=== PATIENT | male | born 1960 | race Hispanic/Latino ===

== ENCOUNTER 2019-02-20 02:26 | Emergency (ER) | payer MEDICAID ==
[2019-02-20] MEDS ORDERED: HYDROmorphone 0.5 MG/0.5 ML Syringe IVPUSH ONE (02:43)
[2019-02-20] MEDS ORDERED: Ondansetron 4 MG/2 ML SDV IVPUSH ONE (02:43)
[2019-02-20] MEDS ORDERED: Sodium Chloride 0.9% 1,000 ML IV SCH (02:45)
--- NOTE | 2019-02-20 02:47 | EDM.PDOC ---
ED HPI GENERAL MEDICAL PROBLEM - General Chief Complaint: Chest Pain Stated Complaint: ABDOMINAL AND CHEST PAINS Time Seen by Provider: 02/20/19 02:33 Source of Information: Reports: Patient History Limitations: Reports: No Limitations - History of Present Illness INITIAL COMMENTS - FREE TEXT/NARRATIVE: This is a 58-year-old male. Around 5 PM this [facility] and [facility]. Around 8 or 9 PM he started having abdominal pain seemed to go all across his mid abdomen. After that it began to migrate up higher into his chest mostly on the right side and into his shoulder. He had some nausea but he didn't vomit. He's had no diarrhea. The pain has persisted and has not gone away so he comes to the ER for evaluation. He has no history of gallbladder problems he has no history of cardiac problems. He's had no recent illnesses colds coughs fever or chills. Chest Pain Score (Numeric/FACES): 8 - Related Data Allergies Allergy/AdvReac Type Severity Reaction Status Date / Time No Known Allergies Allergy Verified 02/20/19 02:37 Home Meds: Home Meds Atenolol 25 mg PO DAILY 02/20/19 [History] Lisinopril 15 mg PO DAILY 02/20/19 [History] ED ROS GENERAL - Review of Systems Review Of Systems: See Below Constitutional: Reports: No Symptoms HEENT: Reports: No Symptoms Respiratory: Denies: Shortness of Breath, Cough Cardiovascular: Reports: Chest Pain Endocrine: Reports: No Symptoms GI/Abdominal: Reports: Abdominal Pain, Nausea. Denies: Constipation, Diarrhea, Vomiting : Reports: No Symptoms Musculoskeletal: Reports: No Symptoms Skin: Reports: No Symptoms Neurological: Reports: No Symptoms Psychiatric: Reports: No Symptoms Hematologic/Lymphatic: Reports: No Symptoms ED EXAM, GENERAL - Physical Exam Exam: See Below Exam Limited By: No Limitations General Appearance: Alert, WD/WN, No Apparent Distress Eye Exam: Bilateral Eye: Normal Inspection Ears: Normal External Exam Nose: Normal Inspection Throat/Mouth: Normal Inspection, Normal Lips, Normal Voice, No Airway Compromise Head: Normocephalic Neck: Supple Respiratory/Chest: No Respiratory Distress, Lungs Clear, Normal Breath Sounds Cardiovascular: Regular Rate, Rhythm, No Murmur GI/Abdominal: Soft, Other (He is much more tender in the right upper quadrant but there is a negative Dumont sign, there is no epigastric or left upper quadrant tenderness and there is no lower abdominal tenderness. Bowel sounds are decreased) Back Exam: Full Range of Motion Extremities: Normal Inspection, Normal Range of Motion Neurological: Alert, Oriented Psychiatric: Normal Affect, Normal Mood Skin Exam: Warm, Dry Course - Vital Signs Last Recorded V/S: Last Vital Signs Temp 97.1 F 02/20/19 02:32 Pulse 62 02/20/19 02:32 Resp 19 02/20/19 02:32 BP 150/85 H 02/20/19 02:32 Pulse Ox 96 02/20/19 02:32 - Orders/Labs/Meds Orders: Active Orders 24 hr Category Date Time Status EKG 12 Lead [EKG Documentation Completion] [RC] STAT Care 02/20/19 02:43 Active Abdomen Ltd [US] Stat Exams 02/20/19 02:47 Taken Sodium Chloride 0.9% [Normal Saline] 1,000 ml Med 02/20/19 02:45 Active IV ASDIRECTED Medication Orders Sodium Chloride (Normal Saline) 1,000 mls @ 1,000 mls/hr IV ASDIRECTED HELENA Last Admin: 02/20/19 03:04 Dose: 1,000 mls/hr Labs: Laboratory Tests 02/20/19 02/20/19 Range/Units 02:50 02:50 WBC 8.80 (4.23-9.07) K/mm3 RBC 5.12 (4.63-6.08) M/mm3 Hgb 15.0 (13.7-17.5) gm/L Hct 45.8 (40.1-51.0) % MCV 89.5 (79.0-92.2) fl MCH 29.3 (25.7-32.2) pg MCHC 32.8 (32.2-35.5) g/dl RDW Std Deviation 41.6 (35.1-43.9) fL Plt Count 270 (163-337) K/mm3 MPV 9.5 (9.4-12.3) fl Neut % (Auto) 53.9 (34.0-67.9) % Lymph % (Auto) 35.8 (21.8-53.1) % Greenlee % (Auto) 7.4 (5.3-12.2) % Eos % (Auto) 2.3 (0.8-7.0) Baso % (Auto) 0.3 (0.1-1.2) % Neut # (Auto) 4.74 (1.78-5.38) K/mm3 Lymph # (Auto) 3.15 (1.32-3.57) K/mm3 Greenlee # (Auto) 0.65 (0.30-0.82) K/mm3 Eos # (Auto) 0.20 (0.04-0.54) K/mm3 Baso # (Auto) 0.03 (0.01-0.08) K/mm3 Sodium 137 (136-145) mEq/L Potassium 4.1 (3.5-5.1) mEq/L Chloride 100 (98-107) mEq/L Carbon Dioxide 28 (21-32) mEq/L Anion Gap 13.1 (5-15) BUN 16 (7-18) mg/dL Creatinine 1.1 (0.7-1.3) mg/dL Est Cr Clr Drug Dosing 69.27 mL/min Estimated GFR (MDRD) > 60 (>60) mL/min BUN/Creatinine Ratio 14.5 (14-18) Glucose 141 H (74-106) mg/dL Calcium 9.7 (8.5-10.1) mg/dL Total Bilirubin 0.5 (0.2-1.0) mg/dL AST 25 (15-37) U/L ALT 63 (16-63) U/L Alkaline Phosphatase 75 (46-116) U/L Troponin I < 0.017 (0.00-0.056) ng/mL Total Protein 8.2 (6.4-8.2) g/dl Albumin 4.1 (3.4-5.0) g/dl Globulin 4.1 gm/dL Albumin/Globulin Ratio 1.0 (1-2) Lipase 162 (73-393) U/L Meds: Medications Generic Name Dose Route Start Last Admin Trade Name Freq PRN Reason Stop Dose Admin Sodium Chloride 1,000 mls @ 1,000 mls/hr 02/20/19 02:45 02/20/19 03:04 Normal Saline IV 1,000 mls/hr ASDIRECTED HELENA Administration Discontinued Medications Generic Name Dose Route Start Last Admin Trade Name Freq PRN Reason Stop Dose Admin Hydromorphone HCl 0.5 mg 02/20/19 02:43 02/20/19 02:55 Dilaudid IVPUSH 02/20/19 02:44 0.5 mg ONETIME ONE Administration Ondansetron HCl 4 mg 02/20/19 02:43 02/20/19 02:55 Zofran IVPUSH 02/20/19 02:44 4 mg ONETIME ONE Administration - Radiology Interpretation Free Text/Narrative:: Ultrasound of the golf bladder shows small stones negative Dumont sign, and bile duct is normal - Re-Assessments/Exams Free Text/Narrative Re-Assessment/Exam: 02/20/19 05:08 Spoke to the patient and his significant other regarding the gallstones. I'm going to refer him to a surgeon here in town for evaluation of his gallbladder. He understands he needs to stay away from greasy fried and oily type foods. Departure - Departure Time of Disposition: 05:09 Disposition: Home, Self-Care 01 Condition: Good Clinical Impression: Right upper quadrant pain Cholelithiasis Qualifiers: Cholelithiasis location: gallbladder Cholecystitis presence: without cholecystitis Biliary obstruction: without biliary obstruction Qualified Code(s) : K80.20 - Calculus of gallbladder without cholecystitis without obstruction Instructions: Gallbladder Eating Plan, Cholelithiasis Referrals: Marilu Mccarthy MD [Physician] - Forms: ED Department Discharge Additional Instructions: Until you see the surgeon you need to stay away from any greasy, fried or oily type foods, if the pain returns after eating he will need to return to the ER for reevaluation, follow up with the surgeon by calling her office on Thursday and getting an appointment, return to the ER if needed - My Orders Last 24 Hours: My Active Orders 02/20/19 02:43 EKG 12 Lead [EKG Documentation Completion] [RC] STAT 02/20/19 02:45 Sodium Chloride 0.9% [Normal Saline] 1,000 ml IV ASDIRECTED 02/20/19 02:47 Abdomen Ltd [US] Stat - Assessment/Plan Last 24 Hours: My Active Orders 02/20/19 02:43 EKG 12 Lead [EKG Documentation Completion] [RC] STAT 02/20/19 02:45 Sodium Chloride 0.9% [Normal Saline] 1,000 ml IV ASDIRECTED 02/20/19 02:47 Abdomen Ltd [US] Stat
--- NOTE | 2019-02-22 09:45 | US ---
Limited abdominal ultrasound: Multiple real-time images of the upper right abdomen were obtained. Comparison: No previous abdominal imaging. Technologist's note: Technically difficult study due to bowel gas and patient body habitus. Liver is echogenic most likely representing fatty infiltration. Several gallstones are seen. No gallbladder wall thickening or biliary duct dilatation is identified. Right kidney shows no hydronephrosis or discrete mass. Right kidney has a length of 10.7 cm. Pancreas is incompletely seen due to bowel gas but visualized portions are within normal limits. Inferior vena cava is obscured. Portal vein shows normal hepatopedal flow. Impression: 1. Several gallstones without gallbladder wall thickening or biliary duct dilatation. 2. Echogenic liver suspicious for fatty infiltration. Diagnostic code #3 I agree with preliminary report from [facility], finalized on 02/20/19, 5:47 AM Central Time
== END 2019-02-20 05:30 | disposition home or self-care (01) ==
LOC: JD.ED 02:26
DX: K80.20 Calculus of gallbladder without cholecystitis without obstruction (principal); Z79.899 Other long term (current) drug therapy
CPT/HCPCS: 36415; 76705; 80053; 83690; 84484; 85025; 93005; 96361; 96374; 96375; 99284; J1170; J2405; J7040

== ENCOUNTER 2019-07-05 00:49 | Emergency (ER) | payer MEDICAID, OTHER ==
--- NOTE | 2019-07-05 01:16 | EDM.PDOC ---
ED HPI GENERAL MEDICAL PROBLEM - General Chief Complaint: Abdominal Pain Stated Complaint: abdominal pain Time Seen by Provider: 07/05/19 01:06 - History of Present Illness INITIAL COMMENTS - FREE TEXT/NARRATIVE: 58-year-old male presents emergency room with right upper quadrant pain. This started about 45 minutes ago about an hour after eating some cereal. The patient's been diagnosed with gallstones in the past from an ultrasound done here earlier this year the patient went back down to [place] and they told him he didn't have gallstones. Patient is not having any nausea vomiting no diarrhea. No fevers or chills. Right Upper Abdominal Pain Score (Numeric/FACES): 8 - Related Data Allergies Allergy/AdvReac Type Severity Reaction Status Date / Time No Known Allergies Allergy Verified 07/05/19 00:57 Home Meds: Home Meds Atenolol 25 mg PO DAILY 02/20/19 [History] Lisinopril 15 mg PO DAILY 02/20/19 [History] Acetaminophen/HYDROcodone [[place] 325-5 MG] 1 tab PO Q4H PRN #15 tablet 07/05/19 [Rx] Past Medical History Cardiovascular History: Reports: High Cholesterol, Hypertension Gastrointestinal History: Reports: Cholelithiasis - Past Surgical History Musculoskeletal Surgical History: Reports: Other (See Below) Other Musculoskeletal Surgeries/Procedures:: bunion sx Social & Family History - Family History Family Medical History: Noncontributory - Tobacco Use Smoking Status *Q: Never Smoker - Caffeine Use Caffeine Use: Reports: Coffee - Recreational Drug Use Recreational Drug Use: No ED ROS GENERAL - Review of Systems Review Of Systems: See Below Constitutional: Reports: No Symptoms HEENT: Reports: No Symptoms Respiratory: Reports: No Symptoms Cardiovascular: Reports: No Symptoms GI/Abdominal: Reports: No Symptoms : Reports: No Symptoms Musculoskeletal: Reports: No Symptoms Skin: Reports: No Symptoms Neurological: Reports: No Symptoms ED EXAM, GI/ABD - Physical Exam Exam: See Below Exam Limited By: No Limitations General Appearance: Alert, No Apparent Distress Respiratory/Chest: No Respiratory Distress, Lungs Clear, Normal Breath Sounds Cardiovascular: Regular Rate, Rhythm, No Edema, No Murmur GI/Abdominal Exam: Normal Bowel Sounds, Soft, Other (He has mild discomfort over the right upper quadrant in the vicinity of the gallbladder. Remaining abdominal exam is for the most part unremarkable he has no rigidity rebound or guarding noted) Back Exam: Normal Inspection. No: CVA Tenderness (L), CVA Tenderness (R) Extremities: Normal Inspection, Non-Tender, No Pedal Edema Neurological: Alert, Oriented, Normal Cognition Course - Vital Signs Last Recorded V/S: Last Vital Signs Temp 36.2 C 07/05/19 00:55 Pulse 62 07/05/19 00:55 Resp 16 07/05/19 00:55 BP 139/97 H 07/05/19 00:55 Pulse Ox 97 07/05/19 00:55 - Orders/Labs/Meds Labs: Laboratory Tests 07/05/19 07/05/19 07/05/19 Range/Units 01:30 01:30 01:30 WBC 6.02 (4.23-9.07) K/mm3 RBC 4.58 L (4.63-6.08) M/mm3 Hgb 14.0 (13.7-17.5) gm/dl Hct 40.6 (40.1-51.0) % MCV 88.6 (79.0-92.2) fl MCH 30.6 (25.7-32.2) pg MCHC 34.5 (32.2-35.5) g/dl RDW Std Deviation 41.3 (35.1-43.9) fL Plt Count 223 (163-337) K/mm3 MPV 9.4 (9.4-12.3) fl Neutrophils % (Manual) 44 (40-60) % Band Neutrophils % 0 (0-10) % Lymphocytes % (Manual) 48 H (20-40) % Atypical Lymphs % 0 % Monocytes % (Manual) 8 (2-10) % Eosinophils % (Manual) 0 L (0.8-7.0) % Basophils % (Manual) 0 L (0.2-1.2) Platelet Estimate Adequate Plt Morphology Comment Normal RBC Morph Comment Normal Sodium 140 (136-145) mEq/L Potassium 3.7 (3.5-5.1) mEq/L Chloride 102 (98-107) mEq/L Carbon Dioxide 27 (21-32) mEq/L Anion Gap 14.7 (5-15) BUN 15 (7-18) mg/dL Creatinine 1.0 (0.7-1.3) mg/dL Est Cr Clr Drug Dosing 76.20 mL/min Estimated GFR (MDRD) > 60 (>60) mL/min BUN/Creatinine Ratio 15.0 (14-18) Glucose 158 H (74-106) mg/dL Calcium 9.4 (8.5-10.1) mg/dL Total Bilirubin 1.3 H (0.2-1.0) mg/dL AST 349 H (15-37) U/L ALT 276 H (16-63) U/L Alkaline Phosphatase 80 (46-116) U/L Total Protein 7.1 (6.4-8.2) g/dl Albumin 3.8 (3.4-5.0) g/dl Globulin 3.3 gm/dL Albumin/Globulin Ratio 1.2 (1-2) Lipase 136 (73-393) U/L Urine Color Mary H (Yellow) Urine Appearance Clear (Clear) Urine pH 6.5 (5.0-8.0) Ur Specific [place] 1.025 (1.005-1.030) Urine Protein Trace H (Negative) Urine Glucose (UA) Negative (Negative) Urine Ketones Trace H (Negative) Urine Occult Blood 1+ H (Negative) Urine Nitrite Negative (Negative) Urine Bilirubin 1+ H (Negative) Urine Urobilinogen 4.0 H (0.2-1.0) Ur Leukocyte Esterase Negative (Negative) Urine RBC 0-5 (0-5) /hpf Urine WBC 0-5 (0-5) /hpf Ur Epithelial Cells 0-5 (0-5) /hpf Amorphous Sediment Few H (NOT SEEN) /hpf Urine Bacteria Moderate H (FEW) /hpf Coarse Granular Casts 0-5 (0-5) /hpf Urine Mucus Many H (FEW) /hpf Meds: Medications Discontinued Medications Generic Name Dose Route Start Last Admin Trade Name Freq PRN Reason Stop Dose Admin Hydrocodone Bitart/Acetaminophen 1 tab 07/05/19 01:58 07/05/19 02:03 [place] 325-5 Mg PO 07/05/19 01:59 1 tab ONETIME ONE Administration Ondansetron HCl 4 mg 07/05/19 01:58 07/05/19 02:03 Zofran Odt PO 07/05/19 01:59 4 mg ONETIME ONE Administration - Re-Assessments/Exams Free Text/Narrative Re-Assessment/Exam: 07/05/19 02:30 Labs reviewed white count is not elevated his transaminases are elevated his bilirubin slightly elevated at 1.3. I reviewed his gallbladder ultrasound from January of this year which is consistent with several gallstones without gallbladder wall thickening or biliary duct dilation liver very consistent with fatty liver. Which could well explain his transaminase elevation. Patient will be scheduled for outpatient gallbladder ultrasound. He'll be instructed to follow-up at the Hospital clinic he needs further evaluation with his transaminase elevation and he needs to be tested for type 2 diabetes. Departure - Departure Time of Disposition: 02:17 Disposition: Home, Self-Care 01 Clinical Impression: Right upper quadrant pain, Transaminitis Cholelithiasis Qualifiers: Cholelithiasis location: gallbladder Cholecystitis presence: without cholecystitis Biliary obstruction: without biliary obstruction Qualified Code(s) : K80.20 - Calculus of gallbladder without cholecystitis without obstruction - Discharge Information Prescriptions: Acetaminophen/HYDROcodone [[place] 325-5 MG] 1 tab PO Q4H PRN #15 tablet PRN Reason: Abdominal Pain Instructions: Cholelithiasis, [id number] Referrals: PCP,None [Primary Care Provider] - Forms: ED Department Discharge Additional Instructions: Return to the emergency room with any questions problems or worsening symptoms. Follow-up in the Hospital clinic to get the results from a gallbladder ultrasound. [phone] Discuss getting tested for diabetes and further evaluation for fatty liver and elevated liver enzymes
[2019-07-05] MEDS ORDERED: Ondansetron 4 MG Tab.DIS PO ONE (01:58)
[2019-07-05] MEDS ORDERED: Acetaminophen/HYDROcodone 325-5 MG Tab PO ONE (01:58)
== END 2019-07-05 02:29 | disposition home or self-care (01) ==
LOC: JD.ED 00:49
DX: K80.20 Calculus of gallbladder without cholecystitis without obstruction (principal); R74.0 Nonspecific elevation of levels of transaminase and lactic acid dehydrogenase [LDH]; I10 Essential (primary) hypertension; Z79.899 Other long term (current) drug therapy
CPT/HCPCS: 36415; 80053; 81001; 83690; 85007; 85027; 99284; A9270